=== PATIENT | male | born 1955 | race Caucasian/White ===

== ENCOUNTER 2019-08-19 14:08 | Emergency (ER) | payer BC ==
[~2019-08-19] VITALS: Ht 195.6 cm; Wt 81.6 kg
--- NOTE | 2019-08-19 14:22 | NUR ---
ERMD at bedside for MSe
--- NOTE | 2019-08-19 14:24 | NUR ---
Patient eloped from facility. ER physician was in the room when patient stormed out. Patient stated that he was waiting for 20 minutes and nothing was being done. Patient was roomed right after triaged, and doctor entered the room almost immediately, but still decided to elope.
--- NOTE | 2019-08-19 14:29 | NUR ---
Patient did not pose any risks or have any SI/HI/AH/VH.
[2019-08-19 14:30] VITALS: BP 120/81
== END 2019-08-19 14:30 | disposition left against medical advice (07) ==
LOC: ER 14:08
DX: R51 Headache (principal); Z88.2 Allergy status to sulfonamides
CPT/HCPCS: A4217; A4663